=== PATIENT | female | born 1975 | race American Indian/Alaskan Native ===

== ENCOUNTER 2018-10-15 15:04 | Outpatient (CLI) | payer BC, MEDICARE ==
[2018-10-15 15:47] LABS: Bacteria,Urine 1+ /HPF (Negative); Bilirubin,Urine NEG (Negative); Blood,Urine MOD (Negative); Color,Urine Yellow (Yellow); Mucus,Urine FEW /HPF; Urobilinogen,Urine < 2.0 mg/dL (<2.0)
== END 2018-10-15 15:05 | disposition home or self-care (01) ==
LOC: LABHHL 15:04
PROVIDERS: ATTEND Urology
DX: G35 Multiple sclerosis (principal); N31.8 Other neuromuscular dysfunction of bladder
CPT/HCPCS: 81001; 87086